=== PATIENT | male | born 2000 | race African-American/Black ===

== ENCOUNTER 2019-07-20 17:30 | Emergency (ER) | payer OTHER ==
[~2019-07-20] VITALS: Ht 175.3 cm; Wt 86.4 kg
[2019-07-20 17:50] VITALS: BP_DIAS 76
[2019-07-20] MEDS ORDERED: AZITHROMYCIN 250 MG TABLET PO ONE (18:15)
[2019-07-20] MEDS ORDERED: CefTRIAXone SODIUM 1 GM/VIAL IM ONE (18:15)
[2019-07-20 22:26] VITALS: BP_SYST 128
== END 2019-07-20 22:36 | disposition home or self-care (01) ==
LOC: EMS 17:32
DX: N34.2 Other urethritis (principal)
CPT/HCPCS: 96372; 99283; J0696